=== PATIENT | male | born 1990 | race Two or more races ===

== ENCOUNTER 2019-11-01 05:43 | Emergency (ER) | payer OTHER ==
[~2019-11-01] VITALS: Ht 165.1 cm; Wt 72.6 kg
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
[2019-11-01] MEDS ORDERED: TDAP [DIPH/PERTUSSIS/TET] 0.5 ML VIAL IM ONE (06:26)
[2019-11-01] MEDS: TDAP [DIPH/PERTUSSIS/TET] 0.5 ML VIAL IM ONE (06:27)
--- NOTE | 2019-11-01 06:35 | NUR ---
PT WAS D/C'D IN CUSTODY W/ [employer] IN STABLE CONDITION. Patient discharged to home in stable condition. Written and verbal after care instructions given. Patient verbalizes understanding of instruction.
[2019-11-01 06:37] VITALS: BP 131/75
== END 2019-11-01 06:35 ==
LOC: ER 05:43
DX: S60.512A Abrasion of left hand, initial encounter (principal); S60.511A Abrasion of right hand, initial encounter; V49.49XA Driver injured in collision with other motor vehicles in traffic accident, initial encounter; Y93.89 Activity, other specified; Y92.488 Other paved roadways as the place of occurrence of the external cause; Y99.8 Other external cause status
CPT/HCPCS: 73130-TC; 90715